=== PATIENT | female | born 1970 | race Caucasian/White ===

== ENCOUNTER → 2022-08-23 | Day surgery (SDC) | payer BC ==
[~2022-08-23] MED LIST: GLUCAGON 1 MG/ML VIAL IM STA
[2022-08-23 08:24] VITALS: BP 104/66; PULSE 82; RESP 16; TEMP 98.1
--- NOTE | 2022-08-25 21:32 | MR ---
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 Right patellofemoral canal is at the administration of thin osteop hyte palpitations TECHNIQUE: Standard multiplanar, multisequence imaging of the abdomen is performed without and with I V contrast, patient is injected with 4.5 mL intravenous Gadavist gadolinium contrast. Oral NeuLumEX w as given as per enterography protocol. FINDINGS: LOWER CHEST: No significant findings. ABDOMEN Motion artifact limits evaluation. Bowel: The small bowel distention is inadequate proximally. No definite evidence to suggest abnormal bowel wall thickening involving a small bowel or large bowel. No evidence of bowel obstruction. No evidence for mucosal hyperenhancement, stricture or fistulous tract formation. Relative nondistention of the sigmoid colon in the pelvis. Few scattered clonic diverticula are present. Peritoneum: No evidence of pneumoperitoneum, free fluid, or adenopathy. Liver: Hepatic cyst with thin septation in the gallbladder fossa measuring up to 11 mm. Gallbladder and Bile ducts: Mild dilation of the extra hepatic biliary system measuring up to 9 mm an d likely related to postcholecystectomy physiology.. Pancreas: Unremarkable. Spleen: Unremarkable. Adrenal glands: Unremarkable. Kidneys: Unremarkable. Bladder: Unremarkable. Reproductive: Unremarkable. Lymph Nodes: Vasculature: Unremarkable. No aortic aneurysm. Musculoskeletal: The osseous structures appear intact. Abdominal wall: Unremarkable. IMPRESSION: 1. Postcontrast imaging is limited by motion. No evidence for wall thickening or definitive mucosal hyperenhancement to suggest active disease. 2. The liver is incompletely assessed on this exam, consider MRI liver mass protocol if this concern for liver neoplasm. There is a simple hepatic cyst present
== END ==
LOC: RADMRIMAIN 07:38
PROVIDERS: ATTEND Physician Assistant
DX: K50.00 Crohn's disease of small intestine without complications (principal)
CPT/HCPCS: 96372; 72197; 74183; J1610; A9585